=== PATIENT | male | born 1935 | race African-American/Black ===

== ENCOUNTER 2021-12-30 08:24 | Inpatient (IN) | payer BC, OTHER ==
[~2021-12-30] VITALS: Ht 167.6 cm; Wt 69.4 kg
[2021-12-30 10:03] LABS: BASOPHILS % 0.7 % (0.0-2.0); EOSINOPHILS % 9.8 % (0.0-5.0); HEMOGLOBIN. 13.3 g/dL (14.0-18.0); LYMPHOCYTES % 20.1 % (20.0-50.0); MEAN CORPUSCULAR HEMOGLOBIN 32.3 pg (28.0-32.0); MEAN CORPUSCULAR VOLUME 97.4 fL (80.0-94.0); MEAN PLATELET VOLUME 7.3 fl (7.4-10.4); MONOCYTES % 7.6 % (2.0-8.0); NEUTROPHILS % 61.8 % (40.0-76.0); PLATELET 182 x1000/uL (130-400); RED BLOOD CELL COUNT 4.11 mill/uL (4.7-6.1); RED CELL DISTRIBUTION WIDTH 13.8 % (11.6-14.6)
[2021-12-30 10:12] LABS: CHLORIDE 104 mEq/L (98-107)
[2021-12-30 10:30] LABS: CLARITY URINE CLEAR (CLEAR); COLOR URINE YELLOW (YELLOW); KETONES URINE NEGATIVE (NEGATIVE); LEUKOCYTE ESTERASE URINE NEGATIVE (NEGATIVE); NITRITE URINE NEGATIVE (NEGATIVE); OCCULT BLOOD URINE NEGATIVE (NEGATIVE); PH URINE 5.5 (4.5-8.0); PROTEIN URINE NEGATIVE (NEGATIVE); SPECIFIC GRAVITY URINE 1.008 (1.005-1.030); UROBILINOGEN URINE 0.2 E.U./dL (0.2-1.0)
[2021-12-30 17:45] VITALS: BP 157/74
[2021-12-30 20:00] VITALS: BP 145/71
[2021-12-30] MEDS ORDERED: ACETAMINOPHEN 325MG TABLET PO PRN ×2 (22:30)
[2021-12-30] MEDS ORDERED: DOCUSATE SODIUM 100MG CAPSULE PO PRN (22:30)
[2021-12-30] MEDS ORDERED: CLONIDINE 0.1MG TABLET PO PRN (22:30)
[2021-12-31] VITALS: BP 132/73
[2021-12-31 04:00] VITALS: BP 133/76
[2021-12-31 05:57] LABS: BASOPHILS % 0.7 % (0.0-2.0); EOSINOPHILS % 9.6 % (0.0-5.0); HEMATOCRIT. 40.7 % (42.0-52.0); HEMOGLOBIN. 13.6 g/dL (14.0-18.0); MEAN CORPUSCULAR HEMOGLOBIN 32.3 pg (28.0-32.0); MEAN PLATELET VOLUME 7.8 fl (7.4-10.4); MONOCYTES % 8.6 % (2.0-8.0); NEUTROPHILS % 60.1 % (40.0-76.0); PLATELET 198 x1000/uL (130-400)
[2021-12-31 06:49] LABS: FOLIC ACID (FOLATE) SERUM >20 ng/mL ng/mL (>5.38); VITAMIN B12 SERUM 639 pg/mL (211-911)
[2021-12-31 08:00] VITALS: BP 157/77
[2021-12-31] MEDS ORDERED: ENOXAPARIN 30MG/0.3ML SYR SUBCUT SCH (09:00)
[2021-12-31] MEDS ORDERED: ASPI-1497 MT (11:05)
[2021-12-31] MEDS ORDERED: LISI40TA13 MT (11:05)
[2021-12-31] MEDS ORDERED: HYDR-4134 MT (11:05)
[2021-12-31] MEDS ORDERED: tamulosin (11:05)
[2021-12-31 12:00] VITALS: BP 149/60
[2021-12-31 16:00] VITALS: BP 141/58
[2021-12-31 16:51] VITALS: BP 128/70
== END 2021-12-31 18:09 | disposition home or self-care (01) | DRG 948 ==
LOC: ER 08:50 → 6WST 14:21 → ENRESERV 15:21
PROVIDERS: ADMIT Internal Medicine; ATTEND Internal Medicine
DX: R53.1 Weakness (principal); E87.1 Hypo-osmolality and hyponatremia; D64.9 Anemia, unspecified; I10 Essential (primary) hypertension; R62.7 Adult failure to thrive; Z68.24 Body mass index [BMI] 24.0-24.9, adult; Z86.69 Personal history of other diseases of the nervous system and sense organs
CPT/HCPCS: 36415; 71045; 80048; 80053; 81003; 82607; 82746; 83880; 84443; 84484; 85025; 93005; 97162; 99285; J1650